=== PATIENT | female | born 1965 | race Two or more races ===

== ENCOUNTER 2024-04-01 05:29 | Day surgery (SDC) | payer OTHER ==
[2024-03-31 11:10] VITALS: BP 124/83
[~2024-04-01] VITALS: Ht 152.4 cm; Wt 65.8 kg
[~2024-04-01 05:29] MED LIST: ABILIFY5 MG PO; CLONAZEPAM0.5 M1 PO; PRISTIQ ER100 MG PO; SYNTHROID50 MCG PO; TRAZODONE HCL150 MG PO; VALSARTAN160 MG PO
[2024-04-01] MEDS ORDERED: CEFAZOLIN SODIUM 1,000 MG VIAL IV ONE (11:45)
[2024-04-01] MEDS ORDERED: ENOXAPARIN SODIUM 40 MG/0.4 ML SYRINGE SUBCUTANEO ONE (12:00)
[2024-04-01] MEDS ORDERED: TRANEXAMIC ACID 100MG/1ML (1000MG) AMPUL IV ONE (12:00)
[2024-04-01] MEDS ORDERED: EPINEPHRINE HCL/PF 1 MG/ML AMPUL IR ONE (12:15)
[2024-04-01] MEDS ORDERED: LIDOCAINE HCL 1%/EPINEPHRINE 20ML VIAL IJ ONE (12:15)
[2024-04-01] MEDS ORDERED: SUGAMMADEX SODIUM 200 MG/2 ML VIAL IV ONE (18:00)
[2024-04-01] MEDS ORDERED: MORPHINE SULFATE 4 MG/ML VIAL IV ONE ×2 (18:05→19:05)
[2024-04-01] MEDS ORDERED: ONDANSETRON HCL 2 MG/ML VIAL IV ONE (18:20)
[2024-04-01] MEDS ORDERED: PROMETHAZINE HCL 50 MG/ML AMPUL IV ONE (18:30)
== END 2024-04-01 19:35 | disposition home or self-care (01) ==
LOC: CIR.AMB 05:29
PROVIDERS: ATTEND Specialist
DX: N62 Hypertrophy of breast (principal); E65 Localized adiposity; Z88.6 Allergy status to analgesic agent; I10 Essential (primary) hypertension; E03.8 Other specified hypothyroidism